=== PATIENT | male | born 1975 | race Caucasian/White ===

== ENCOUNTER 2020-12-08 22:33 | Emergency (ER) | payer OTHER ==
[~2020-12-08 22:33] MED LIST: FLOMAX 0.4 MG0.4 MG PO; HYDROCODON-ACE1 EAC4 PO; IBU600 MG PO; IBUPROFEN600 MG PO; PERCOCET 5-3251 EACH PO
== END 2020-12-08 23:30 | disposition home or self-care (01) ==
LOC: ER1 22:33
DX: R10.32 Left lower quadrant pain (principal); F17.210 Nicotine dependence, cigarettes, uncomplicated
CPT/HCPCS: 99283

== ENCOUNTER 2020-12-10 16:51 | Emergency (ER) | payer OTHER | END 2020-12-10 18:09 | disposition left against medical advice (07) | LOC: ER1 16:51 | DX: Z53.21 Procedure and treatment not carried out due to patient leaving prior to being seen by health care provider (principal) ==

== ENCOUNTER 2020-12-26 09:47 | Emergency (ER) | payer OTHER ==
[2020-12-26 11:43] LABS: HEMOGLOBIN 13.6 gm/dl (14.0-17.5); RED BLOOD COUNT 4.76 M/UL (4.20-5.50); WHITE BLOOD COUNT 13.2 K/UL (4.5-11.0)
[2020-12-26 12:04] LABS: BUN/CREATININE RATIO 16 (0-10)
[2020-12-26] MEDS ORDERED: HYDROCODON-ACE1 EAC4 PO (13:34)
[2020-12-26] MEDS ORDERED: FLOMAX 0.4 MG0.4 MG PO (13:34)
[2020-12-26] MEDS ORDERED: IBUPROFEN800 MG PO (13:34)
[2020-12-26] MEDS ORDERED: ZOFRAN ODT 4 MG4 MG PO (13:34)
== END 2020-12-26 13:55 | disposition home or self-care (01) ==
LOC: ER1 09:47
PROVIDERS: Emergency Medicine
DX: N13.2 Hydronephrosis with renal and ureteral calculous obstruction (principal); F17.200 Nicotine dependence, unspecified, uncomplicated
CPT/HCPCS: 71045; 80053; 81001; 85025; 93005; 96374; 99284; J1885

== ENCOUNTER 2021-01-03 23:35 | Emergency (ER) | payer OTHER ==
[~2021-01-03 23:35] MED LIST changes: +IBUPROFEN800 MG PO; +ZOFRAN ODT 4 MG4 MG PO
[2021-01-04 01:12] LABS: HEMOGLOBIN 14.6 gm/dl (14.0-17.5); RED BLOOD COUNT 4.94 M/UL (4.20-5.50); WHITE BLOOD COUNT 8.6 K/UL (4.5-11.0)
[2021-01-04 01:29] LABS: BUN/CREATININE RATIO 14 (0-10)
== END 2021-01-04 02:35 | disposition home or self-care (01) ==
LOC: ER1 23:35
PROVIDERS: Physician Assistant
DX: R10.32 Left lower quadrant pain (principal); R11.2 Nausea with vomiting, unspecified; Z87.442 Personal history of urinary calculi
CPT/HCPCS: 80053; 83690; 85025; 99284

== ENCOUNTER 2021-04-20 20:03 | Emergency (ER) | payer MEDICAID | END 2021-04-20 22:10 | disposition home or self-care (01) | LOC: ER1 20:03 | DX: M25.561 Pain in right knee (principal); M25.461 Effusion, right knee; F17.210 Nicotine dependence, cigarettes, uncomplicated; X50.9XXA Other and unspecified overexertion or strenuous movements or postures, initial encounter | CPT/HCPCS: 73564; 99283 ==